=== PATIENT | male | born 1950 | race Caucasian/White ===

== ENCOUNTER 2018-02-16 09:15 | Outpatient (CLI) | payer OTHER ==
--- NOTE | 2018-02-16 11:59 | ULT ---
THYROID ULTRASOUND: 02/16/2018 HISTORY: Evaluate thyroid nodule. COMPARISON: None. TECHNIQUE: Multiplanar [place]-scale sonographic imaging of the thyroid gland is obtained. FINDINGS: The thyroid isthmus measures 2 mm in AP dimension. The right lobe measures 1.4 x 4.3 x 2.4 cm. Ther e is a hypoechoic, mildly complex, cystic nodule within the inferior aspect of the right lobe, measur ing 5 x 3 mm, and in the posterior mid portion of the right lobe, measuring 4 x 4 mm. A third right thyroid nodule is seen in the mid pole, which is hypoechoic, and measures 5 x 4 mm. The left lobe of the thyroid gland measures 1.2 x 3.9 x 1.2 cm. There is heterogeneously, hypoechoi c nodule in the medial aspect of the left lobe, measuring 1.2 x 0.8 x 1.2 cm. This nodule is heterog eneously hypoechoic and demonstrates no internal calcification and no internal blood flow. There is an additional tiny nodule in the left lobe, measuring 4 x 2 mm. IMPRESSION: Bilateral thyroid nodules, largest on the left. The left thyroid nodule represents a TR3 nodule, for which followup in one year is advised. POS: EBONY
== END 2018-02-16 09:16 | disposition home or self-care (01) ==
LOC: ULT 09:15
PROVIDERS: ATTEND Internal Medicine Cardiovascular Disease
DX: E04.1 Nontoxic single thyroid nodule (principal); E04.2 Nontoxic multinodular goiter
CPT/HCPCS: 76536

== ENCOUNTER 2022-01-15 08:00 | Outpatient (CLI) | payer MEDICARE | END 2022-01-15 08:01 | disposition home or self-care (01) | LOC: PET 08:00 | PROVIDERS: ATTEND Radiology Radiation Oncology | DX: C21.1 Malignant neoplasm of anal canal (principal); K62.89 Other specified diseases of anus and rectum | CPT/HCPCS: 78815; A9552 ==

== ENCOUNTER 2022-09-10 11:51 | Outpatient (CLI) | payer MEDICARE | END 2022-09-10 11:52 | disposition home or self-care (01) | LOC: SCSRAD 11:51 | PROVIDERS: ATTEND Family Medicine | DX: R07.89 Other chest pain (principal); R05.3 Chronic cough | CPT/HCPCS: 71111 ==

== ENCOUNTER 2022-09-16 09:38 | Outpatient (CLI) | payer MEDICARE ==
[2022-09-17] MEDS ORDERED: Iopamidol 370 76% 100 ML VIAL ONE (09:36)
== END 2022-09-16 09:39 | disposition home or self-care (01) ==
LOC: CT 09:38
PROVIDERS: ATTEND Internal Medicine Hematology & Oncology
DX: C21.1 Malignant neoplasm of anal canal (principal); D50.0 Iron deficiency anemia secondary to blood loss (chronic); R91.8 Other nonspecific abnormal finding of lung field; R59.0 Localized enlarged lymph nodes; K76.9 Liver disease, unspecified; K62.89 Other specified diseases of anus and rectum; N40.0 Benign prostatic hyperplasia without lower urinary tract symptoms
CPT/HCPCS: 74177; Q9967

== ENCOUNTER 2022-09-26 11:35 | Outpatient (CLI) | payer MEDICARE | END 2022-09-26 11:36 | disposition home or self-care (01) | LOC: BICRAD 11:35 | PROVIDERS: ATTEND Physician Assistant Medical | DX: C20 Malignant neoplasm of rectum (principal); R06.02 Shortness of breath; R05.9 Cough, unspecified | CPT/HCPCS: 71046 ==

== ENCOUNTER 2022-10-02 07:52 | Day surgery (SDC) | payer MEDICARE ==
[2022-09-30 11:16] VITALS: BMI 22.7
[2022-10-02 08:29] LABS: Prothrombin Time 13.7 sec (12.0-14.7)
[2022-10-02 08:30] LABS: PTT 32.6 sec (22.9-36.1)
[2022-10-02 09:13] VITALS: BP 134/71; TEMP 98.2
[2022-10-02] MEDS ORDERED: FENTANYL 50 MCG/ML 1 ML VIAL ONE (09:51)
[2022-10-02] MEDS ORDERED: Midazolam HCl 2 mg/2 ml Vial ONE (09:51)
[2022-10-02] MEDS ORDERED: Sodium Bicarbonate 2.5 MEQ/5 ML VIAL ONE (09:51)
[2022-10-02] MEDS ORDERED: FLU VACC QS2022-23(65YR UP)/PF 240 MCG/0.7 ML SYRINGE IM ONE (15:45)
== END 2022-10-02 14:00 | disposition home or self-care (01) ==
LOC: CT 07:52
PROVIDERS: ATTEND Internal Medicine Hematology & Oncology
PROC: 0BBF3ZX Excision of Right Lower Lung Lobe, Percutaneous Approach, Diagnostic (ICD-10-PCS; principal; 2022-10-02)
DX: C34.31 Malignant neoplasm of lower lobe, right bronchus or lung (principal); C21.1 Malignant neoplasm of anal canal; C78.7 Secondary malignant neoplasm of liver and intrahepatic bile duct; C77.9 Secondary and unspecified malignant neoplasm of lymph node, unspecified; M13.0 Polyarthritis, unspecified; E11.9 Type 2 diabetes mellitus without complications; I10 Essential (primary) hypertension; E78.5 Hyperlipidemia, unspecified; N40.0 Benign prostatic hyperplasia without lower urinary tract symptoms; R91.8 Other nonspecific abnormal finding of lung field; J90 Pleural effusion, not elsewhere classified; J98.11 Atelectasis; Z86.16 Personal history of COVID-19; Z79.4 Long term (current) use of insulin; Z79.52 Long term (current) use of systemic steroids; Z79.82 Long term (current) use of aspirin; Z79.84 Long term (current) use of oral hypoglycemic drugs; Z79.899 Other long term (current) drug therapy; Z88.0 Allergy status to penicillin; Z91.041 Radiographic dye allergy status
CPT/HCPCS: 32408; 71045; 77012; 85610; 85730; 88305; 88333; 88341; 88342; J1642; J2250; J3010

== ENCOUNTER 2022-10-22 10:36 | Inpatient (IN) | payer MEDICARE ==
[2022-10-22 11:59] LABS: #Eosinphils 0.1 thou/uL (0.0-0.7); #Lymphocytes 0.6 thou/uL (1.20-3.40); #Monocytes 2.6 thou/uL (0.11-0.59); #Neutrophils 15.4 thou/uL (1.40-6.50); %Basophils 0.1 % (0.0-1.0); %Eosinophils 0.3 % (0.0-10.0); %Lymphocytes 3.3 % (21.0-51.0); %Monocytes 13.7 % (0.0-10.0); %Neutrophils 82.6 % (42.0-75.0); Hemoglobin 8.2 g/dL (14.0-18.0); Mean Corpuscular HGB CONC 30.1 g/dL (32.0-36.0); Mean Corpuscular Volume 86.3 fl (78.0-98.0); Mean Platelet Volume 7.3 fL (7.4-10.4); Platelet Count 417 10x3/uL (130-400); RBC Distribution Width 16.9 % (11.5-14.5); Red Blood Cell (RBC) Count 3.17 mill/uL (4.70-6.10); White Blood Cell (WBC) Count 18.6 10x3/uL (4.8-10.8)
[2022-10-22 12:37] LABS: ALT (SGPT) 65 U/L (8-55); AST (SGOT) 38 U/L (5-34); Alkaline Phosphatase 157 U/L (40-110); Anion Gap 16 mmol/L (10-20); BUN (Urea Nitrogen) 14 mg/dL (8.4-25.7); Bilirubin, Total 0.4 mg/dL (0.2-1.2); Calc. Creatinine Clearance 0 mL/min (70-130); Calcium 10.3 mg/dL (7.8-10.44); Carbon Dioxide 19 mmol/L (23-31); Chloride 104 mmol/L (98-107); Estimated GFR 97; Globulin 2.7 g/dL (2.4-3.5); Glucose 220 mg/dL (83-110); Potassium 4.8 mmol/L (3.5-5.1); Protein, Total 5.7 g/dL (5.8-8.1); Sodium 134 mmol/L (136-145)
[2022-10-22] MEDS ORDERED: Ondansetron PF 4 MG/2 ML Vial ONE (14:46)
[2022-10-22] MEDS ORDERED: Morphine 4 MG/ML VIAL ONE (14:46)
[2022-10-22] MEDS ORDERED: Ondansetron PF 4 MG/2 ML Vial IVP PRN (15:42)
[2022-10-22] MEDS ORDERED: Dextrose 5% in Water 1,000 ML IV PRN (15:42)
[2022-10-22] MEDS ORDERED: Dextrose 50% Abboject 50 ML SYRINGE SLOW IVP PRN (15:42)
[2022-10-22] MEDS ORDERED: Acetaminophen 325 MG TAB PO PRN (15:42)
[2022-10-22] MEDS ORDERED: Cefepime 2 GM VIAL ONE (16:03)
[2022-10-22] MEDS ORDERED: Morphine 4 MG/ML VIAL SLOW IVP PRN (16:19)
[2022-10-22 16:22] LABS: Bilirubin Negative (Negative); Blood, Urine Negative (Negative); Clarity Clear (Clear); Glucose, Urine (Dipstick) 500 mg/dL (Negative); Ketone, Urine Negative (Negative); Leukocyte Negative Leu/uL (Negative); Nitrite Negative (Negative); Protein, Urine (Dipstick) 50 mg/dL (Neg-Trace); RBC/HPF 0-3 HPF (0-3); Specific Gravity, Urine 1.021 (1.002-1.036); Squamous Epithelial 0-3 HPF (0-3); Urobilinogen Normal mg/dL (Less than 2); WBC/HPF 0-3 HPF (0-3)
[2022-10-22 16:23] LABS: Bacteria/HPF 1+ HPF (None Seen)
[2022-10-22] MEDS ORDERED: VANCOMYCIN 2 GRAM/500 ML BAG 2 GM in Premix Bag 1 BAG IVPB SCH (17:00)
[2022-10-22] MEDS: Sodium Chloride 0.9% 1,000 ML IV SCH ×2 (19:11→20:37)
[2022-10-22] MEDS: Cefepime 2 GM in Sodium Chloride 0.9% 100 ML IVPB SCH (20:26)
[2022-10-22] MEDS: Tamsulosin HCl 0.4 MG CAP PO SCH (20:26)
[2022-10-22] MEDS: Atorvastatin Calcium 20 MG TAB PO SCH (20:26)
[2022-10-22] MEDS: Mirtazapine 30 MG TAB PO SCH ×2 (20:26→20:33)
[2022-10-22] MEDS: Famotidine 20 MG TAB PO SCH (20:26)
[2022-10-22] MEDS ORDERED: Insulin Glargine 30 UNITS/0.3 ML VIAL SC SCH (21:00)
[2022-10-22] MEDS: Transdermal Patch Removal TOP SCH (21:14)
[2022-10-23] MEDS: HYDROcodone/Acetaminophen 5/325 mg Tablet PO PRN ×3 (02:37→15:15)
[2022-10-23] MEDS: VANCOMYCIN 1.25 GM/250 ML BAG 1.25 GM in Premix Bag 1 BAG IVPB SCH ×2 (04:29→16:34)
[2022-10-23 05:50] LABS: #Eosinphils 0.1 thou/uL (0.0-0.7); #Lymphocytes 0.4 thou/uL (1.20-3.40); #Monocytes 1.8 thou/uL (0.11-0.59); #Neutrophils 11.9 thou/uL (1.40-6.50); %Basophils 0.1 % (0.0-1.0); %Eosinophils 0.5 % (0.0-10.0); %Lymphocytes 3.1 % (21.0-51.0); %Monocytes 12.4 % (0.0-10.0); %Neutrophils 83.9 % (42.0-75.0); Hemoglobin 6.9 g/dL (14.0-18.0); Mean Corpuscular Hemoglobin 26.4 pg (27.0-31.0); Mean Corpuscular Volume 88.2 fl (78.0-98.0); Mean Platelet Volume 7.1 fL (7.4-10.4); Platelet Count 374 10x3/uL (130-400); RBC Distribution Width 16.9 % (11.5-14.5); Red Blood Cell (RBC) Count 2.59 mill/uL (4.70-6.10); White Blood Cell (WBC) Count 14.2 10x3/uL (4.8-10.8)
[2022-10-23] MEDS: Cefepime 2 GM in Sodium Chloride 0.9% 100 ML IVPB SCH ×3 (06:03→21:36)
[2022-10-23 06:05] LABS: Anion Gap 12 mmol/L (10-20); BUN (Urea Nitrogen) 14 mg/dL (8.4-25.7); Calc. Creatinine Clearance 98 mL/min (70-130); Calcium 9.8 mg/dL (7.8-10.44); Carbon Dioxide 19 mmol/L (23-31); Chloride 108 mmol/L (98-107); Estimated GFR 99; Glucose 83 mg/dL (83-110); Potassium 4.4 mmol/L (3.5-5.1); Sodium 135 mmol/L (136-145)
[2022-10-23] MEDS ORDERED: Electrolyte Replacement Protocol 1 EACH FS SCH (08:00)
[2022-10-23] MEDS ORDERED: Electrolyte Replacement Protocol FS PRN (08:30)
[2022-10-23 08:53] LABS: Phosphorus 2.7 mg/dL (2.3-4.7)
[2022-10-23] MEDS ORDERED: predniSONE 1 MG TAB PO SCH (09:00)
[2022-10-23] MEDS: Famotidine 20 MG TAB PO SCH ×2 (09:49→20:12)
[2022-10-23] MEDS: Lidocaine 5% Patch TD SCH (09:50)
[2022-10-23] MEDS ORDERED: Magnesium 2 GM/50 ML(in water) 2 GM in Premix Bag 1 BAG IVPB SCH (10:00)
[2022-10-23] MEDS: HumaLOG 300 UNITS/3 ML VIAL SC PRN ×2 (16:34→20:21)
[2022-10-23] MEDS ORDERED: Electrolyte Replacement Protocol FS SCH (17:30)
[2022-10-23] MEDS: Morphine ER 15 MG TAB PO SCH (20:11)
[2022-10-23] MEDS: Tamsulosin HCl 0.4 MG CAP PO SCH (20:11)
[2022-10-23] MEDS: Atorvastatin Calcium 20 MG TAB PO SCH (20:11)
[2022-10-23] MEDS: Senokot S 8.6-50 MG TAB PO SCH (20:12)
[2022-10-23] MEDS: Mirtazapine 30 MG TAB PO SCH (21:16)
[2022-10-23] MEDS: Transdermal Patch Removal TOP SCH (21:17)
[2022-10-24] MEDS: Sodium Chloride 0.9% 1,000 ML IV SCH ×2 (04:10→15:01)
[2022-10-24 04:53] LABS: Lactic Acid 1.4 mmol/L (0.5-2.2)
[2022-10-24 04:55] LABS: Hemoglobin 5.6 g/dL (14.0-18.0)
[2022-10-24 04:56] LABS: #Lymphocytes 0.6 thou/uL (1.20-3.40); #Monocytes 1.9 thou/uL (0.11-0.59); #Neutrophils 11.9 thou/uL (1.40-6.50); %Eosinophils 0.3 % (0.0-10.0); %Lymphocytes 3.9 % (21.0-51.0); %Monocytes 13.2 % (0.0-10.0); %Neutrophils 82.7 % (42.0-75.0); Mean Corpuscular HGB CONC 29.1 g/dL (32.0-36.0); Mean Corpuscular Hemoglobin 25.3 pg (27.0-31.0); Platelet Count 311 10x3/uL (130-400); RBC Distribution Width 17.1 % (11.5-14.5); White Blood Cell (WBC) Count 14.4 10x3/uL (4.8-10.8)
[2022-10-24 04:57] LABS: Vancomycin, Trough 15.9 ug/mL
[2022-10-24 05:09] LABS: Anion Gap 11 mmol/L (10-20); BUN (Urea Nitrogen) 12 mg/dL (8.4-25.7); Calc. Creatinine Clearance 94 mL/min (70-130); Calcium 9.7 mg/dL (7.8-10.44); Carbon Dioxide 19 mmol/L (23-31); Chloride 107 mmol/L (98-107); Estimated GFR 97; Glucose 167 mg/dL (83-110); Phosphorus 2.1 mg/dL (2.3-4.7); Sodium 133 mmol/L (136-145)
[2022-10-24] MEDS: Cefepime 2 GM in Sodium Chloride 0.9% 100 ML IVPB SCH ×3 (05:22→21:58)
[2022-10-24] MEDS: VANCOMYCIN 1.25 GM/250 ML BAG 1.25 GM in Premix Bag 1 BAG IVPB SCH ×2 (05:23→16:26)
[2022-10-24] MEDS: HumaLOG 300 UNITS/3 ML VIAL SC PRN ×3 (05:36→16:26)
[2022-10-24] MEDS: Senokot S 8.6-50 MG TAB PO SCH ×2 (07:42→20:06)
[2022-10-24] MEDS: Polyethylene Glycol 3350 17 GM Packet PO SCH (07:42)
[2022-10-24] MEDS: Famotidine 20 MG TAB PO SCH ×2 (07:42→20:10)
[2022-10-24] MEDS: Morphine ER 15 MG TAB PO SCH ×2 (07:42→20:09)
[2022-10-24] MEDS: Lidocaine 5% Patch TD SCH (07:42)
[2022-10-24] MEDS ORDERED: predniSONE 1 MG TAB PO SCH (08:00)
[2022-10-24] MEDS ORDERED: Aspirin 81 mg Enteric Coated Tablet PO SCH (09:00)
[2022-10-24 16:45] LABS: Platelet Count 355 10x3/uL (130-400)
[2022-10-24] MEDS: HYDROcodone/Acetaminophen 5/325 mg Tablet PO PRN (17:05)
[2022-10-24] MEDS: methylPREDNISolone Sod Succ/PF 125 MG/2 ML VIAL IVP SCH ×2 (17:05→23:03)
[2022-10-24] MEDS: Atorvastatin Calcium 20 MG TAB PO SCH (20:09)
[2022-10-24] MEDS: Transdermal Patch Removal TOP SCH (20:09)
[2022-10-24] MEDS: Tamsulosin HCl 0.4 MG CAP PO SCH (20:10)
[2022-10-24] MEDS: Mirtazapine 30 MG TAB PO SCH (20:10)
[2022-10-24 22:29] LABS: Hemoglobin 7.5 g/dL (14.0-18.0); Platelet Count 302 10x3/uL (130-400)
[2022-10-25] MEDS: HYDROcodone/Acetaminophen 5/325 mg Tablet PO PRN (01:57)
[2022-10-25 05:30] LABS: #Lymphocytes 0.4 thou/uL (1.20-3.40); #Monocytes 0.2 thou/uL (0.11-0.59); #Neutrophils 9.9 thou/uL (1.40-6.50); %Eosinophils 0.1 % (0.0-10.0); %Lymphocytes 3.6 % (21.0-51.0); %Monocytes 2.1 % (0.0-10.0); %Neutrophils 94.2 % (42.0-75.0); Mean Corpuscular HGB CONC 30.1 g/dL (32.0-36.0); Mean Corpuscular Hemoglobin 26.9 pg (27.0-31.0); Mean Corpuscular Volume 89.2 fl (78.0-98.0); Mean Platelet Volume 7.4 fL (7.4-10.4); Platelet Count 306 10x3/uL (130-400); RBC Distribution Width 16.4 % (11.5-14.5); Red Blood Cell (RBC) Count 2.99 mill/uL (4.70-6.10); White Blood Cell (WBC) Count 10.5 10x3/uL (4.8-10.8)
[2022-10-25] MEDS: methylPREDNISolone Sod Succ/PF 125 MG/2 ML VIAL IVP SCH ×3 (05:36→17:46)
[2022-10-25] MEDS: Cefepime 2 GM in Sodium Chloride 0.9% 100 ML IVPB SCH ×3 (05:36→20:47)
[2022-10-25] MEDS: VANCOMYCIN 1.25 GM/250 ML BAG 1.25 GM in Premix Bag 1 BAG IVPB SCH ×2 (05:36→16:22)
[2022-10-25] MEDS: HumaLOG 300 UNITS/3 ML VIAL SC PRN ×4 (05:37→20:47)
[2022-10-25 05:58] LABS: Anion Gap 12 mmol/L (10-20); BUN (Urea Nitrogen) 16 mg/dL (8.4-25.7); Calc. Creatinine Clearance 94 mL/min (70-130); Calcium 9.7 mg/dL (7.8-10.44); Carbon Dioxide 19 mmol/L (23-31); Chloride 109 mmol/L (98-107); Estimated GFR 97; Glucose 269 mg/dL (83-110); Magnesium 2.2 mg/dL (1.6-2.6); Potassium 4.5 mmol/L (3.5-5.1); Sodium 135 mmol/L (136-145)
[2022-10-25 06:06] LABS: Phosphorus 3.2 mg/dL (2.3-4.7)
[2022-10-25] MEDS ORDERED: predniSONE 1 MG TAB PO SCH (08:00)
[2022-10-25] MEDS: Morphine ER 15 MG TAB PO SCH ×2 (08:17→19:39)
[2022-10-25] MEDS: Famotidine 20 MG TAB PO SCH (08:17)
[2022-10-25] MEDS: Lidocaine 5% Patch TD SCH (08:18)
[2022-10-25] MEDS ORDERED: FLU VACC QS2022-23(65YR UP)/PF 240 MCG/0.7 ML SYRINGE IM ONE (09:00)
[2022-10-25] MEDS: Polyethylene Glycol 3350 17 GM Packet PO SCH (09:34)
[2022-10-25] MEDS: Senokot S 8.6-50 MG TAB PO SCH ×2 (09:34→19:37)
[2022-10-25] MEDS: Sodium Chloride 0.9% 1,000 ML IV SCH (16:22)
[2022-10-25 16:46] LABS: Vancomycin, Trough 20.5 ug/mL
[2022-10-25] MEDS: Tamsulosin HCl 0.4 MG CAP PO SCH (19:38)
[2022-10-25] MEDS: Transdermal Patch Removal TOP SCH (19:38)
[2022-10-25] MEDS: Mirtazapine 30 MG TAB PO SCH (19:38)
[2022-10-25] MEDS: Atorvastatin Calcium 20 MG TAB PO SCH (19:39)
[2022-10-26 05:37] LABS: #Lymphocytes 0.4 thou/uL (1.20-3.40); #Monocytes 0.7 thou/uL (0.11-0.59); %Eosinophils 0.2 % (0.0-10.0); %Lymphocytes 3.8 % (21.0-51.0); %Monocytes 5.9 % (0.0-10.0); %Neutrophils 90.1 % (42.0-75.0); Hemoglobin 7.5 g/dL (14.0-18.0); Mean Corpuscular HGB CONC 29.9 g/dL (32.0-36.0); Mean Corpuscular Hemoglobin 26.9 pg (27.0-31.0); Mean Corpuscular Volume 90.2 fl (78.0-98.0); Mean Platelet Volume 7.5 fL (7.4-10.4); Platelet Count 313 10x3/uL (130-400); Red Blood Cell (RBC) Count 2.77 mill/uL (4.70-6.10); White Blood Cell (WBC) Count 11.1 10x3/uL (4.8-10.8)
[2022-10-26 05:54] LABS: Anion Gap 11 mmol/L (10-20); BUN (Urea Nitrogen) 23 mg/dL (8.4-25.7); Calc. Creatinine Clearance 81 mL/min (70-130); Calcium 9.7 mg/dL (7.8-10.44); Carbon Dioxide 21 mmol/L (23-31); Chloride 109 mmol/L (98-107); Estimated GFR 93; Potassium 4.5 mmol/L (3.5-5.1); Sodium 136 mmol/L (136-145)
[2022-10-26 05:58] LABS: Glucose 400 mg/dL (83-110)
[2022-10-26] MEDS: HumaLOG 300 UNITS/3 ML VIAL SC PRN (06:15)
[2022-10-26 07:05] VITALS: BP 149/76; TEMP 97.5
[2022-10-26] MEDS ORDERED: predniSONE 20 MG TAB PO SCH (08:00)
[2022-10-26] MEDS: Lidocaine 5% Patch TD SCH (08:13)
[2022-10-26] MEDS: Morphine ER 15 MG TAB PO SCH (08:14)
[2022-10-26] MEDS: Senokot S 8.6-50 MG TAB PO SCH (08:16)
[2022-10-26] MEDS: Polyethylene Glycol 3350 17 GM Packet PO SCH (08:16)
[2022-10-26] MEDS ORDERED: NPH, Human Insulin Isophane 300 UNIT/3 ML VIAL SC SCH (09:00)
[2022-10-26] MEDS: HYDROcodone/Acetaminophen 5/325 mg Tablet PO PRN (09:31)
== END 2022-10-26 17:12 | disposition hospice, home (50) | DRG 871 ==
LOC: ERS 10:36 → ERHOLD 15:30 → MSONC 18:37
PROVIDERS: ADMIT Internal Medicine; ATTEND Internal Medicine
PROC: 3E03329 Introduction of Other Anti-infective into Peripheral Vein, Percutaneous Approach (ICD-10-PCS; principal; 2022-10-22)
PROC: 30233N1 Transfusion of Nonautologous Red Blood Cells into Peripheral Vein, Percutaneous Approach (ICD-10-PCS; 2022-10-24)
DX: A41.9 Sepsis, unspecified organism (principal); R65.20 Severe sepsis without septic shock; Z20.822 Contact with and (suspected) exposure to COVID-19; Z66 Do not resuscitate; Z51.5 Encounter for palliative care; E43 Unspecified severe protein-calorie malnutrition; J96.01 Acute respiratory failure with hypoxia; J18.9 Pneumonia, unspecified organism; C21.0 Malignant neoplasm of anus, unspecified; C78.00 Secondary malignant neoplasm of unspecified lung; C78.7 Secondary malignant neoplasm of liver and intrahepatic bile duct; C77.5 Secondary and unspecified malignant neoplasm of intrapelvic lymph nodes; E87.1 Hypo-osmolality and hyponatremia; I10 Essential (primary) hypertension; E78.5 Hyperlipidemia, unspecified; N40.0 Benign prostatic hyperplasia without lower urinary tract symptoms; M19.90 Unspecified osteoarthritis, unspecified site; E83.42 Hypomagnesemia; D63.0 Anemia in neoplastic disease; E83.39 Other disorders of phosphorus metabolism; E11.65 Type 2 diabetes mellitus with hyperglycemia; D50.0 Iron deficiency anemia secondary to blood loss (chronic); T38.0X5A Adverse effect of glucocorticoids and synthetic analogues, initial encounter; Z98.890 Other specified postprocedural states; Z68.20 Body mass index [BMI] 20.0-20.9, adult; Z79.899 Other long term (current) drug therapy; Z79.82 Long term (current) use of aspirin; Z79.4 Long term (current) use of insulin; Z79.52 Long term (current) use of systemic steroids
CPT/HCPCS: 36415; 36416; 36430; 70450; 71045; 80048; 80053; 80202; 81003; 81015; 83605; 83735; 83880; 84100; 84484; 85025; 85046; 86850; 86900; 86901; 87040; 87077; 87086; 87186; 93005; 93970; 94640; J0692; J1642; J1815; J1956; J2270; J2405; J2930; J3370; J3475; J3490; J7050; J7512; J7620; P9016; U0003; U0005